=== PATIENT | male | born 1990 | race African-American/Black ===

== ENCOUNTER 2025-03-04 14:32 | Emergency (ER) | payer OTHER ==
[~2025-03-04] VITALS: Ht 210.8 cm; Wt 98.0 kg
[2025-03-04 15:03] VITALS: O2SAT 99
[2025-03-04] MEDS: METHOCARBAMOL 500MG TABLET PO ONE (15:15)
[2025-03-04] MEDS: IBUPROFEN 600MG TABLET PO ONE (15:15)
[2025-03-04] MEDS ORDERED: IBUP-2029 MT (16:00)
[2025-03-04] MEDS ORDERED: METH-653 MT (16:00)
[2025-03-04 16:17] VITALS: BP 111/65; PULSE 89; RESP 18; TEMP 36.6; O2SAT 99
== END 2025-03-04 16:17 | disposition home or self-care (01) ==
LOC: ER 14:32
DX: S33.5XXA Sprain of ligaments of lumbar spine, initial encounter (principal); Z79.899 Other long term (current) drug therapy; Z98.890 Other specified postprocedural states; X58.XXXA Exposure to other specified factors, initial encounter; Y93.89 Activity, other specified; Y92.89 Other specified places as the place of occurrence of the external cause; Y99.8 Other external cause status
CPT/HCPCS: 72100; 99283